=== PATIENT | male | born 1975 | race Caucasian/White ===

== ENCOUNTER 2016-08-11 20:34 | Emergency (ER) | payer MEDICAID ==
[~2016-08-11 20:34] MED LIST: AMLODIPINE BES2.5 M1 PO; AUGMENTIN 875-1 EAC2 PO; BACTRIM DS TAB1 EAC2 PO; BENZTROPINE ME0.5 M1 PO; BENZTROPINE MESY1 M1 PO; BIPOLAR MED; COMPAZINE10 MG PO; COZAAR25 M1 PO; CYCLOBENZAPRINE10 M1 PO; CYCLOBENZAPRINE5 M1 PO; DEPAKOTE ER500 M1 PO; FLEXERIL PO; GABAPENTIN300 M1 PO; GEODON60 M1 PO; IBUPROFEN600 M1 PO; IBUPROFEN800 M1 PO; KEFLEX500 M4 PO; NAPROSYN500 M1 PO; NO MEDS.; NORCO 5-325 TA1 EACH PO; NORCO 7.5-3251 EACH PO; OLANZAPINE7.5 M1 PO; OMEPRAZOLE20 M3 PO; PEPCID AC20 MG PO; PERCOCET 5-3251 EACH PO; PROAIR HFA8.5 GM INH; PROMETHAZINE-C118 ML PO; SEROQUEL300 M1 PO; SKELAXIN800 M3 PO; TRAMADOL HCL50 M2 PO; ULTRAM50 M1 PO; XARELTO15 M1 PO; XARELTO20 M1 PO; ZOFRAN ODT4 MG PO
[2016-08-11] MEDS ORDERED: BACITRACIN28.4 G2 TP (21:23)
[2016-08-11] MEDS ORDERED: [UNRECOGNIZED DRUG - OTHER] TP (21:25)
[2016-08-11] MEDS ORDERED: NORCO 5-325 TA1 EACH PO (21:26)
== END 2016-08-11 21:25 ==
LOC: EDMED 20:34
PROC: 2W24X4Z Dressing of Chest Wall using Bandage (ICD-10-PCS; principal; 2016-08-11)
PROC: 2W2AX4Z Dressing of Right Upper Arm using Bandage (ICD-10-PCS; 2016-08-11)
PROC: 2W2BX4Z Dressing of Left Upper Arm using Bandage (ICD-10-PCS; 2016-08-11)
PROC: 2W2RX4Z Dressing of Left Lower Leg using Bandage (ICD-10-PCS; 2016-08-11)
PROC: 2W2QX4Z Dressing of Right Lower Leg using Bandage (ICD-10-PCS; 2016-08-11)
DX: T24.201A Burn of second degree of unspecified site of right lower limb, except ankle and foot, initial encounter (principal); T24.202A Burn of second degree of unspecified site of left lower limb, except ankle and foot, initial encounter; T22.222A Burn of second degree of left elbow, initial encounter; T22.221A Burn of second degree of right elbow, initial encounter; T21.01XA Burn of unspecified degree of chest wall, initial encounter; T31.0 Burns involving less than 10% of body surface; X32.XXXA Exposure to sunlight, initial encounter; Y93.89 Activity, other specified; Y99.8 Other external cause status